=== PATIENT | female | born 1985 | race Asian ===

== ENCOUNTER 2016-09-04 14:31 | Emergency (ER) | payer OTHER ==
[2016-09-04 15:02] VITALS: BP 136/93
--- NOTE | 2016-09-04 15:22 | UC ---
Complaint Female HPI - HPI Summary HPI Summary: Dysuria, frequency, urgency, hematuria, pressure since this morning. Drank alcohol last night. Has had frequent UTIs in the last year or two, every 2-3 months. Denies previous UTI with resistant bacteria. No fever, back pain, or vomiting. Sx are somewhat improved since taking aspirin and drinking lots of water. - History Of Current Complaint Chief Complaint: [facility] Stated Complaint: BLOOD IN URINE,URGENT URINATION Time Seen by Provider: 09/04/16 14:50 Hx Obtained From: Patient Hx Last Menstrual Period: doesn't get period - Mirena ?: No Onset/Duration: Sudden Onset, Lasting Hours Timing: Constant Severity Initially: Moderate Severity Currently: Mild Character: Burning Aggravating Factor(s): Urination - Allergies/Home Medications Allergies/Adverse Reactions: Allergies Allergy/AdvReac Type Severity Reaction Status Date / Time No Known Allergies Allergy Verified 06/29/15 09:24 Home Medications: Home Medications Aspirin TAB* [Aspirin 325 MG TAB*] 650 mg 09/04/16 [History] PMH/Surg Hx/FS Hx/Imm Hx Endocrine History Of: Denies: Diabetes, Thyroid Disease Cardiovascular History Of: Denies: Cardiac Disorders, Hypertension Respiratory History Of: Denies: COPD, Asthma GI/ History Of: Denies: Ulcer - Surgical History Surgical History: Yes Surgery Procedure, Year, and Place: 2009 - Family History Known Family History: Positive: Unknown - adopted - Social History Occupation: Employed Full-time Lives: With Family Alcohol Use: Weekly Substance Use Type: None Smoking Status (MU): Light Every Day Tobacco Smoker Type: eCigarettes - Immunization History Most Recent Influenza Vaccination: 2013 Most Recent Tetanus Shot: unsure Review of Systems Constitutional: Negative Skin: Negative Eyes: Negative ENT: Negative Respiratory: Negative Cardiovascular: Negative Gastrointestinal: Negative Genitourinary: Dysuria, Hematuria, Frequency, Urgency Motor: Negative Neurovascular: Negative Musculoskeletal: Negative Neurological: Negative Psychological: Negative All Other Systems Reviewed And Are Negative: Yes Physical Exam Triage Information Reviewed: Yes Appearance: Well-Appearing, No Pain Distress, Well-Nourished Vital Signs: Initial Vital Signs Temp 98.1 F 09/04/16 14:54 Pulse 77 09/04/16 14:54 Resp 18 09/04/16 14:54 BP 136/93 09/04/16 14:54 Pulse Ox 100 09/04/16 14:54 Vital Signs Reviewed: Yes Eye Exam: Normal Eyes: Positive: Conjunctiva Clear ENT Exam: Normal ENT: Positive: Normal ENT inspection, Hearing grossly normal, Pharynx normal, TMs normal Dental Exam: Normal Neck exam: Normal Neck: Positive: Supple, Nontender, No Lymphadenopathy Respiratory Exam: Normal Respiratory: Positive: Chest non-tender, Lungs clear, Normal breath sounds, No respiratory distress, No accessory muscle use Cardiovascular Exam: Normal Cardiovascular: Positive: RRR, No Murmur Abdomen Description: Negative: CVA Tenderness (R), CVA Tenderness (L) Musculoskeletal Exam: Normal Neurological Exam: Normal Neurological: Positive: Alert Psychological Exam: Normal Skin Exam: Normal Complaint Female Dx - Differential Dx/Diagnosis Provider Diagnoses: UTI Discharge - Discharge Plan Condition: Stable Disposition: HOME Prescriptions: Nitrofurantoin Monohyd Macro [Macrobid] 100 mg PO BID #10 cap Patient Education Materials: Urinary Tract Infection in Women (ED) Referrals: Brandee Mi MD [Primary Care Provider] - 2 Weeks Geoff Hirsch MD [Medical Doctor] - 2 Weeks Additional Instructions: I have referred you to a urologist for your frequent UTIs. If you wish, you could consult with your primary care provider first. She may have some other strategies or ideas before you see a urologist. If you like, you can try calling Dr. Combs (who specializes in urogynecology) at [phone]
== END 2016-09-04 15:15 | disposition home or self-care (01) ==
LOC: UCEAST 14:31
DX: N39.0 Urinary tract infection, site not specified (principal); F17.210 Nicotine dependence, cigarettes, uncomplicated; Z79.82 Long term (current) use of aspirin
CPT/HCPCS: 81003; 87086; 99212; G0463